=== PATIENT | female | born 1955 | race African-American/Black ===

== ENCOUNTER 2020-11-22 11:51 | Inpatient (IN) | payer OTHER ==
[~2020-11-22] VITALS: Ht 167.6 cm; Wt 89.8 kg
[2020-11-22] MEDS ORDERED: ASPirin 81 mg TAB PO ONE (12:45)
[2020-11-22] MEDS ORDERED: ONDANSETRON HCL 4 MG/2 ML VIAL IV ONE (12:45)
[2020-11-22] MEDS ORDERED: MORPHINE SULF INJ 2 MG/ML SYRINGE 1ML IV ONE (12:45)
[2020-11-22 13:28] LABS: Basophils # (auto) 0 10 ^3/uL (0-0.2); Basophils % (auto) 0.7 % (0.0-2.0); Eosinophils # (auto) 0.1 10 ^3/uL (0-0.8); Eosinophils % (auto) 1.3 % (0.0-7.0); Hematocrit 41.6 % (36.0-46.0); Hemoglobin 14.3 g/dL (12.2-16.2); Lymphocytes # (auto) 1.2 10 ^3/uL (0.4-5.4); Lymphocytes % (auto) 24.4 % (10.0-50.0); Mean Corpuscular Hemoglobin 32.1 pg (28.0-32.0); Mean Corpuscular Hgb Conc. 34.5 g/dL (32.0-36.0); Mean Corpuscular Volume 93.1 fL (80.0-100.0); Monocytes # (auto) 0.5 10 ^3/uL (0-1.3); Monocytes % (auto) 10.8 % (0.0-12.0); Neutrophils # (auto) 3.1 10 ^3/uL (1.6-8.6); Neutrophils % (auto) 62.8 % (37.0-80.0); Nucleated Red Blood Cells % 0.1 %; Red Blood Cells 4.47 10^6/uL (4.0-5.20); Red Cell Distribution Width 13.7 % (11.8-14.3); White Blood Cell 4.9 10^3/uL (4.4-10.8)
[2020-11-22 13:41] LABS: Albumin 3.7 g/dL (3.4-5.0); Anion Gap 2 (5-15); Blood Urea Nitrogen 9 mg/dL (7-18); Calcium 9.2 mg/dL (8.5-10.1); Carbon Dioxide 28 mmol/L (21-32); Chloride 112 mmol/L (98-107); Glucose 93 mg/dL (74-106); Magnesium 2.3 mg/dL (1.6-2.6); Potassium 4.2 mmol/L (3.5-5.1); Sodium 142 mmol/L (136-145)
[2020-11-22 13:47] LABS: Alanine Aminotransferase 38 U/L (13-56); Alkaline Phosphatase 112 U/L (45-117); Aspartate Aminotransferase 20 U/L (15-37); BUN/Creatinine Ratio 12.3; Bilirubin, Total 0.5 mg/dL (0.2-1.0); GFR African American 103 mL/min; GFR Non-African American 85 mL/min; INR 1.01 (0.9-1.15); Partial Thromboplastin Time 24.6 sec (23.0-31.2); Total Protein 6.9 g/dL (6.4-8.2)
[2020-11-22] MEDS ORDERED: HYDROcodone-ACET 5/325MG TAB PO PRN (15:00)
[2020-11-22] MEDS ORDERED: NITROGLYCERIN 0.4 MG SL TAB SL PRN (15:00)
[2020-11-22] MEDS ORDERED: MORPHINE SULF INJ 2 MG/ML SYRINGE 1ML IV PRN (15:00)
[2020-11-22] MEDS ORDERED: hydrALAZINE HCL 20 MG/ML VL IV PRN (15:00)
[2020-11-22] MEDS ORDERED: ACETAMINOPHEN 500 MG TAB PO PRN (15:00)
[2020-11-22] MEDS: ONDANSETRON HCL 4 MG/2 ML VIAL IV PRN (19:44)
[2020-11-22] MEDS: MORPHINE SULF INJ 2 MG/ML SYRINGE 1ML IV PRN (19:44)
[2020-11-22 20:24] VITALS: BP 131/88
[2020-11-22] MEDS: ATORVASTATIN 20 MG TAB PO SCH (21:49)
[2020-11-22] MEDS: METOPROLOL TARTRATE 25 MG TAB PO SCH (21:52)
[2020-11-22 22:00] VITALS: BP 131/88
[2020-11-22] MEDS ORDERED: METO25TA93 PO (22:49)
[2020-11-22] MEDS ORDERED: LISI-275 PO (22:49)
[2020-11-23 05:00] VITALS: BP 132/77
[2020-11-23 09:00] VITALS: BP 132/80
[2020-11-23] MEDS: NICOTINE 21MG/24 HR TOPICAL PATCH TD SCH (09:01)
[2020-11-23] MEDS: LISINOPRIL 10 MG TAB PO SCH (09:02)
[2020-11-23] MEDS: FAMOTIDINE 20 MG TAB PO SCH (09:02)
[2020-11-23] MEDS: METOPROLOL TARTRATE 25 MG TAB PO SCH ×2 (09:02→22:34)
[2020-11-23] MEDS: ASPirin-EC 81 mg tab PO SCH (09:02)
[2020-11-23 13:00] VITALS: BP 132/84
[2020-11-23 17:00] VITALS: BP 142/99
[2020-11-23] MEDS: MORPHINE SULF INJ 2 MG/ML SYRINGE 1ML IV PRN (17:59)
[2020-11-23] MEDS: ONDANSETRON HCL 4 MG/2 ML VIAL IV PRN (17:59)
[2020-11-23 22:00] VITALS: BP 138/84
[2020-11-23] MEDS: ATORVASTATIN 20 MG TAB PO SCH (22:34)
[2020-11-24 05:00] VITALS: BP 130/89
[2020-11-24 08:00] VITALS: BP 129/71
[2020-11-24] MEDS: NICOTINE 21MG/24 HR TOPICAL PATCH TD SCH (11:16)
[2020-11-24] MEDS: LISINOPRIL 10 MG TAB PO SCH (11:16)
[2020-11-24] MEDS: FAMOTIDINE 20 MG TAB PO SCH (11:17)
[2020-11-24] MEDS: ASPirin-EC 81 mg tab PO SCH (11:17)
[2020-11-24] MEDS: METOPROLOL TARTRATE 25 MG TAB PO SCH (11:17)
[2020-11-24 12:00] VITALS: BP 135/91
[2020-11-24] MEDS: MORPHINE SULF INJ 2 MG/ML SYRINGE 1ML IV PRN (14:15)
[2020-11-24 16:00] VITALS: BP 130/80
[2020-11-24 16:23] VITALS: BP 130/80
== END 2020-11-24 17:00 | disposition home or self-care (01) | DRG 194 ==
LOC: ER 11:51 → TELE 14:53 → TELE-CENTR 20:24
PROVIDERS: ADMIT Nurse Practitioner Acute Care; ATTEND Family Medicine
DX: I11.0 Hypertensive heart disease with heart failure (principal); J44.1 Chronic obstructive pulmonary disease with (acute) exacerbation; I50.43 Acute on chronic combined systolic (congestive) and diastolic (congestive) heart failure; E66.9 Obesity, unspecified; Z68.31 Body mass index [BMI] 31.0-31.9, adult; Z20.822 Contact with and (suspected) exposure to COVID-19; F17.210 Nicotine dependence, cigarettes, uncomplicated; I25.10 Atherosclerotic heart disease of native coronary artery without angina pectoris; R07.9 Chest pain, unspecified; I25.5 Ischemic cardiomyopathy; Z82.49 Family history of ischemic heart disease and other diseases of the circulatory system; Z83.3 Family history of diabetes mellitus; Z71.6 Tobacco abuse counseling
CPT/HCPCS: 36415; 71046; 80053; 83735; 83880; 84443; 84484; 85025; 85049; 85379; 85610; 85730; 86141; 87426; 93005; 93306; 96374; 96375; 96376; G0378; J2405

== ENCOUNTER 2021-01-06 09:06 | Emergency (ER) | payer OTHER ==
[~2021-01-06] VITALS: Ht 172.7 cm; Wt 87.5 kg
[~2021-01-06 09:06] MED LIST: LISI-275 PO; METO25TA93 PO
[2021-01-06] MEDS ORDERED: ASPirin 81 mg TAB PO ONE (09:30)
[2021-01-06 10:09] LABS: Urine Bacteria FEW /hpf (None Seen); Urine Blood Negative /uL (Negative); Urine Mucus FEW (None Seen); Urine Specific Gravity 1.015 (1.001-1.035); Urine WBC 2 /hpf (0 - 5)
[2021-01-06 10:18] LABS: Basophils # (auto) 0 10 ^3/uL (0-0.2); Basophils % (auto) 0.6 % (0.0-2.0); Eosinophils # (auto) 0.1 10 ^3/uL (0-0.8); Hematocrit 43.3 % (36.0-46.0); Hemoglobin 14.6 g/dL (12.2-16.2); Lymphocytes # (auto) 1.5 10 ^3/uL (0.4-5.4); Lymphocytes % (auto) 29.2 % (10.0-50.0); Mean Corpuscular Hemoglobin 31.4 pg (28.0-32.0); Mean Corpuscular Hgb Conc. 33.8 g/dL (32.0-36.0); Mean Corpuscular Volume 92.8 fL (80.0-100.0); Monocytes # (auto) 0.4 10 ^3/uL (0-1.3); Monocytes % (auto) 7.5 % (0.0-12.0); Neutrophils # (auto) 3.3 10 ^3/uL (1.6-8.6); Neutrophils % (auto) 61.7 % (37.0-80.0); Nucleated Red Blood Cells % 0.1 %; Red Blood Cells 4.66 10^6/uL (4.0-5.20); Red Cell Distribution Width 13.5 % (11.8-14.3); White Blood Cell 5.3 10^3/uL (4.4-10.8)
[2021-01-06 10:34] LABS: Albumin 3.4 g/dL (3.4-5.0); Anion Gap 4 (5-15); Blood Urea Nitrogen 6 mg/dL (7-18); Calcium 9.7 mg/dL (8.5-10.1); Carbon Dioxide 25 mmol/L (21-32); Chloride 111 mmol/L (98-107); Glucose 114 mg/dL (74-106); Sodium 140 mmol/L (136-145)
[2021-01-06 10:39] LABS: Alanine Aminotransferase 31 U/L (13-56); Alkaline Phosphatase 107 U/L (45-117); Aspartate Aminotransferase 17 U/L (15-37); BUN/Creatinine Ratio 8.6; Bilirubin, Total 0.3 mg/dL (0.2-1.0); GFR African American 108 mL/min; GFR Non-African American 90 mL/min
[2021-01-06 12:00] VITALS: BP 142/82
== END 2021-01-06 12:04 | disposition home or self-care (01) ==
LOC: ER 09:08
DX: R07.89 Other chest pain (principal); N39.0 Urinary tract infection, site not specified; F17.210 Nicotine dependence, cigarettes, uncomplicated; I10 Essential (primary) hypertension; E78.5 Hyperlipidemia, unspecified; Z86.73 Personal history of transient ischemic attack (TIA), and cerebral infarction without residual deficits; Z98.890 Other specified postprocedural states
CPT/HCPCS: 36415; 71045; 80053; 81001; 83880; 84484; 85025; 93005

== ENCOUNTER 2023-02-03 07:41 | Emergency (ER) | payer MEDICARE, OTHER ==
[~2023-02-03] VITALS: Ht 170.2 cm; Wt 78.3 kg
[2023-02-03 08:12] VITALS: BP 138/106; PULSE 101; RESP 18; TEMP 98.3; O2SAT 99
[2023-02-03] MEDS ORDERED: IBUP-1456 PO (09:25)
== END 2023-02-03 09:25 | disposition home or self-care (01) ==
LOC: ER 07:41
DX: S86.911A Strain of unspecified muscle(s) and tendon(s) at lower leg level, right leg, initial encounter (principal); F17.210 Nicotine dependence, cigarettes, uncomplicated; E78.5 Hyperlipidemia, unspecified; I10 Essential (primary) hypertension; W18.39XA Other fall on same level, initial encounter; Y93.89 Activity, other specified; Y92.89 Other specified places as the place of occurrence of the external cause; Y99.8 Other external cause status
CPT/HCPCS: 73590

== ENCOUNTER 2023-06-01 16:28 | Inpatient (IN) | payer MEDICARE, OTHER ==
[~2023-06-01] VITALS: Ht 170.2 cm; Wt 80.6 kg
[~2023-06-01 16:28] MED LIST changes: +IBUP-1456 PO
[2023-06-01 17:00] VITALS: PULSE 105; RESP 38; O2SAT 98
[2023-06-01 17:30] LABS: Basophils # (auto) 0 10 ^3/uL (0-0.2); Basophils % (auto) 0.2 % (0.0-2.0); Eosinophils # (auto) 0 10 ^3/uL (0-0.8); Eosinophils % (auto) 0.1 % (0.0-7.0); Hematocrit 40.9 % (36.0-46.0); Hemoglobin 13.1 g/dL (12.2-16.2); Lymphocytes # (auto) 0.6 10 ^3/uL (0.4-5.4); Lymphocytes % (auto) 10.8 % (10.0-50.0); Mean Corpuscular Hemoglobin 30.9 pg (28.0-32.0); Mean Corpuscular Hgb Conc. 31.9 g/dL (32.0-36.0); Mean Corpuscular Volume 96.7 fL (80.0-100.0); Monocytes # (auto) 0.2 10 ^3/uL (0-1.3); Monocytes % (auto) 4.2 % (0.0-12.0); Neutrophils # (auto) 4.6 10 ^3/uL (1.6-8.6); Neutrophils % (auto) 84.7 % (37.0-80.0); Nucleated Red Blood Cells % 0.2 %; Red Blood Cells 4.23 10^6/uL (4.0-5.20); Red Cell Distribution Width 14.7 % (11.8-14.3); White Blood Cell 5.4 10^3/uL (4.4-10.8)
[2023-06-01 17:40] LABS: Alanine Aminotransferase 315 U/L (7-40); Albumin 4.3 g/dL (3.2-4.8); Alkaline Phosphatase 138 U/L (46-116); Anion Gap 9 (5-15); Aspartate Aminotransferase 451 U/L (13-40); BUN/Creatinine Ratio 21.7 (10.0-20.0); Bilirubin, Total 1.3 mg/dL (0.2-1.0); Blood Urea Nitrogen 18 mg/dL (9-23); Calcium 10.2 mg/dL (8.5-10.1); Carbon Dioxide 21 mmol/L (20-30); Chloride 112 mmol/L (98-107); Glucose 126 mg/dL (74-106); Potassium 4.5 mmol/L (3.5-5.1); Sodium 142 mmol/L (136-145)
[2023-06-01 17:41] LABS: Total Protein 6.5 g/dL (5.7-8.2)
[2023-06-01] MEDS ORDERED: NITROGLYCERIN 0.4 MG SL TAB SL ONE (17:45)
[2023-06-01] MEDS ORDERED: ASPirin 325 MG TAB PO ONE (17:45)
[2023-06-01 17:56] LABS: Urine Epithelial Cast None Seen /hpf (<5)
[2023-06-01 18:30] LABS: Urine Bacteria MOD /hpf (None Seen); Urine Blood Negative /uL (Negative); Urine Clarity HAZY (Clear); Urine Color Yellow (Yellow); Urine Mucus FEW (None Seen); Urine Protein, UAD Negative (Negative); Urine Specific Gravity 1.016 (1.001-1.035); Urine WBC 11 /hpf (0 - 5)
[2023-06-01 18:31] LABS: Amphetamine Screen, Urine Neg (NEGATIVE); Benzodiazephine Screen, Urine Neg (NEGATIVE)
[2023-06-01 18:32] LABS: Barbiturate Scree,Urine Neg (NEGATIVE); Cannabinoid Screen, Urine Neg (NEGATIVE); Cocaine Screen, Urine Neg (NEGATIVE); Opiate Scree,Urine Neg (NEGATIVE); Phencyclidine Screen, Urine Neg (NEGATIVE)
[2023-06-01] MEDS ORDERED: FUROSEMIDE 40 MG/4 ML VIAL IV ONE (18:45)
[2023-06-01 19:35] VITALS: PULSE 98; RESP 24; O2SAT 96
[2023-06-01] MEDS ORDERED: NITROGLYCERIN 0.4 MG SL TAB SL PRN (20:45)
[2023-06-01] MEDS ORDERED: ONDANSETRON HCL 4 MG/2 ML VIAL IV PRN (20:45)
[2023-06-01] MEDS ORDERED: ENOXAPARIN SOD 80 MG/0.8ML SYRINGE SC ONE (20:45)
[2023-06-01] MEDS ORDERED: cefTRIAXone 1GM/50ML D5W 50 ML IV ONE (20:45)
[2023-06-01] MEDS ORDERED: MORPHINE SULFATE INJ 2 MG/ml SYRG IV PRN (20:45)
[2023-06-01] MEDS: ATORVASTATIN 20 MG TAB PO SCH (21:46)
[2023-06-02] VITALS (9 sets, daily range): BP systolic 108–119; BP diastolic 75–91; PULSE 18–101; RESP 17–22; TEMP 97.4–98.2; O2SAT 97–100
[2023-06-02 08:23] LABS: Basophils # (auto) 0 10 ^3/uL (0-0.2); Basophils % (auto) 0.5 % (0.0-2.0); Eosinophils # (auto) 0.1 10 ^3/uL (0-0.8); Eosinophils % (auto) 0.9 % (0.0-7.0); Hematocrit 39.2 % (36.0-46.0); Hemoglobin 12.8 g/dL (12.2-16.2); Lymphocytes # (auto) 1.8 10 ^3/uL (0.4-5.4); Mean Corpuscular Hemoglobin 31.1 pg (28.0-32.0); Mean Corpuscular Hgb Conc. 32.7 g/dL (32.0-36.0); Mean Corpuscular Volume 95.1 fL (80.0-100.0); Monocytes # (auto) 0.6 10 ^3/uL (0-1.3); Monocytes % (auto) 9.7 % (0.0-12.0); Neutrophils # (auto) 3.7 10 ^3/uL (1.6-8.6); Neutrophils % (auto) 59.9 % (37.0-80.0); Nucleated Red Blood Cells % 0.1 %; Red Blood Cells 4.12 10^6/uL (4.0-5.20); Red Cell Distribution Width 14.3 % (11.8-14.3); White Blood Cell 6.1 10^3/uL (4.4-10.8)
[2023-06-02 08:29] LABS: Alanine Aminotransferase 264 U/L (7-40); Albumin 4.1 g/dL (3.2-4.8); Alkaline Phosphatase 115 U/L (46-116); Anion Gap 6 (5-15); Aspartate Aminotransferase 153 U/L (13-40); BUN/Creatinine Ratio 14.7 (10.0-20.0); Blood Urea Nitrogen 15 mg/dL (9-23); Calcium 10.3 mg/dL (8.5-10.1); Carbon Dioxide 28 mmol/L (20-30); Chloride 110 mmol/L (98-107); Glucose 112 mg/dL (74-106); Potassium 4.1 mmol/L (3.5-5.1); Sodium 144 mmol/L (136-145); Total Protein 6.4 g/dL (5.7-8.2)
[2023-06-02] MEDS: METOPROLOL SUCCINATE XL 50 MG TAB PO SCH (10:00)
[2023-06-02] MEDS: SPIRONOLACTONE 25 MG TAB PO SCH (10:00)
[2023-06-02] MEDS: cefTRIAXone 1GM/50ML D5W 50 ML IV SCH (10:03)
[2023-06-02] MEDS: FUROSEMIDE 40 MG TAB PO SCH (10:13)
[2023-06-02] MEDS: ASPirin 81 mg TAB PO SCH (10:13)
[2023-06-02] MEDS ORDERED: SIMV40TA18 PO (12:09)
[2023-06-02] MEDS ORDERED: SACU1TAB PO (12:09)
[2023-06-02] MEDS ORDERED: LISI-275 PO (12:09)
[2023-06-02] MEDS ORDERED: METO25TA93 PO (12:09)
[2023-06-02] MEDS ORDERED: QUET400T13 PO (12:09)
[2023-06-02] MEDS: ATORVASTATIN 20 MG TAB PO SCH (21:35)
[2023-06-03] VITALS (9 sets, daily range): BP systolic 93–130; BP diastolic 61–89; PULSE 87–101; RESP 16–20; TEMP 97.8–98.2; O2SAT 93–100
[2023-06-03] MEDS: cefTRIAXone 1GM/50ML D5W 50 ML IV SCH (09:59)
[2023-06-03] MEDS: ASPirin 81 mg TAB PO SCH (10:00)
[2023-06-03] MEDS: SPIRONOLACTONE 25 MG TAB PO SCH (10:01)
[2023-06-03] MEDS: METOPROLOL SUCCINATE XL 50 MG TAB PO SCH (10:02)
[2023-06-03] MEDS: FUROSEMIDE 40 MG TAB PO SCH (10:02)
[2023-06-03] MEDS ORDERED: ALBUTEROL SULF 2.5 MG/0.5ML(0.5%) NEB SOLN NEB PRN (19:00)
[2023-06-03] MEDS ORDERED: QUEtiapine FUMARATE 100 MG TAB PO PRN (19:00)
[2023-06-03] MEDS: ATORVASTATIN 20 MG TAB PO SCH (21:13)
[2023-06-04] VITALS (9 sets, daily range): BP systolic 114–124; BP diastolic 73–81; PULSE 50–101; RESP 16–20; TEMP 97.9–98.8; O2SAT 93–100
[2023-06-04 06:50] LABS: Basophils # (auto) 0 10 ^3/uL (0-0.2); Basophils % (auto) 0.5 % (0.0-2.0); Eosinophils # (auto) 0.1 10 ^3/uL (0-0.8); Eosinophils % (auto) 1.6 % (0.0-7.0); Hematocrit 40.9 % (36.0-46.0); Hemoglobin 13.5 g/dL (12.2-16.2); Lymphocytes % (auto) 20.5 % (10.0-50.0); Mean Corpuscular Hemoglobin 31.5 pg (28.0-32.0); Mean Corpuscular Volume 95.4 fL (80.0-100.0); Monocytes # (auto) 0.5 10 ^3/uL (0-1.3); Monocytes % (auto) 10.5 % (0.0-12.0); Neutrophils # (auto) 3.3 10 ^3/uL (1.6-8.6); Neutrophils % (auto) 66.9 % (37.0-80.0); Nucleated Red Blood Cells % 0.1 %; Red Blood Cells 4.29 10^6/uL (4.0-5.20); Red Cell Distribution Width 14.6 % (11.8-14.3)
[2023-06-04 07:02] LABS: Chloride 107 mmol/L (98-107); Potassium 4.1 mmol/L (3.5-5.1); Sodium 140 mmol/L (136-145)
[2023-06-04 07:03] LABS: Anion Gap 6 (5-15); Calcium 9.9 mg/dL (8.7-10.4); Carbon Dioxide 27 mmol/L (20-30)
[2023-06-04 07:08] LABS: BUN/Creatinine Ratio 12.2 (10.0-20.0); Blood Urea Nitrogen 11 mg/dL (9-23); Glucose 67 mg/dL (74-106)
[2023-06-04] MEDS: cefTRIAXone 1GM/50ML D5W 50 ML IV SCH (09:28)
[2023-06-04] MEDS: ASPirin 81 mg TAB PO SCH (09:28)
[2023-06-04] MEDS: FUROSEMIDE 40 MG TAB PO SCH (09:30)
[2023-06-04] MEDS: METOPROLOL SUCCINATE XL 50 MG TAB PO SCH (09:30)
[2023-06-04] MEDS: SPIRONOLACTONE 25 MG TAB PO SCH (09:30)
[2023-06-04] MEDS ORDERED: SPIR25TA PO (14:38)
[2023-06-04] MEDS ORDERED: FURO20TA3 PO (14:38)
[2023-06-04] MEDS ORDERED: CEPH250C PO (14:38)
== END 2023-06-04 17:08 | disposition home or self-care (01) | DRG 190 ==
LOC: EDBD 16:28 → ER 16:28 → TELE-WESTW 20:49 → TELE 20:49 → TELE-WESTW 06-02 08:49
PROVIDERS: ADMIT Nurse Practitioner; ATTEND Internal Medicine
DX: I21.4 Non-ST elevation (NSTEMI) myocardial infarction (principal); J96.01 Acute respiratory failure with hypoxia; I50.23 Acute on chronic systolic (congestive) heart failure; I25.10 Atherosclerotic heart disease of native coronary artery without angina pectoris; I42.9 Cardiomyopathy, unspecified; I11.0 Hypertensive heart disease with heart failure; E78.5 Hyperlipidemia, unspecified; F17.210 Nicotine dependence, cigarettes, uncomplicated; J44.9 Chronic obstructive pulmonary disease, unspecified; N39.0 Urinary tract infection, site not specified; F20.9 Schizophrenia, unspecified; Z95.810 Presence of automatic (implantable) cardiac defibrillator; F15.90 Other stimulant use, unspecified, uncomplicated; R74.01 Elevation of levels of liver transaminase levels
CPT/HCPCS: 36415; 71045; 80048; 80053; 80307; 81001; 83605; 83735; 83880; 84484; 85025; 87081; 87086; 93005; 93306; 94640; 96374; 99291; G0378